=== PATIENT | male | born 1980 | race Caucasian/White ===

== ENCOUNTER 2021-02-26 23:38 | Emergency (ER) | payer SELFPAY ==
[~2021-02-26] VITALS: Ht 177.8 cm; Wt 65.8 kg
[~2021-02-26 23:38] MED LIST: AMOX500 PO; CLIN300 PO; HYDACE5 PO; PENVK500 PO; RXPENVK250 PO
[2021-02-27] MEDS ORDERED: ERYT1OIN BOTHEYES (00:41)
[2021-02-27] MEDS ORDERED: Norco 5-325 Ta1 EACH PO (00:41)
== END 2021-02-27 00:51 | disposition home or self-care (01) ==
LOC: ER 23:38
DX: H16.143 Punctate keratitis, bilateral (principal); F17.200 Nicotine dependence, unspecified, uncomplicated; Z23 Encounter for immunization
CPT/HCPCS: 90714; 99283; A9270

== ENCOUNTER 2025-01-03 17:24 | Emergency (ER) | payer OTHER ==
[~2025-01-03] VITALS: Ht 175.3 cm; Wt 65.8 kg
[~2025-01-03 17:24] MED LIST changes: +ERYT1OIN BOTHEYES; +Norco 5-325 Ta1 EACH PO
[2025-01-03 17:36] VITALS: BP 162/91
[2025-01-03] MEDS ORDERED: CEPH500 PO (18:30)
[2025-01-03] MEDS ORDERED: Cephalexin Monohydrate 500 MG Cap PO ONE (18:30)
[2025-01-03] MEDS ORDERED: AMOCLA875 PO (18:30)
[2025-01-03] MEDS ORDERED: Trimethoprim/Sulfamethoxazole DS Tab PO ONE (18:30)
== END 2025-01-03 18:38 | disposition home or self-care (01) ==
LOC: ER 17:24
DX: L02.511 Cutaneous abscess of right hand (principal)
CPT/HCPCS: 99283; A9270